=== PATIENT | female | born 1950 | race Caucasian/White ===

== ENCOUNTER → 2016-03-07 | Outpatient (CLI) | payer MEDICARE, OTHER ==
--- NOTE | 2016-03-07 10:19 | RAD ---
EXAM DESCRIPTION: XR KNEE 4 OR MORE VIEWS CLINICAL HISTORY: 66 y/o ,F, PAIN IN LEFT KNEE COMPARISON: October 04, 2015 IMPRESSION: Left knee arthroplasty again noted. No osteolysis seen on today's study. Small joint effusion noted. Dystrophic calcifications seen within the region of the quadriceps tendon. There is irregularity of the distal quadriceps tendon. Injury to this tendon cannot be excluded on today's study. No evidence of fracture noted. Electronically signed by: Jeremiah Palma MD 03/07/2016 10:18
--- NOTE | 2016-03-07 10:21 | RAD ---
EXAM DESCRIPTION: Pelvis series. CLINICAL HISTORY: Pelvic pain. COMPARISON: None. TECHNIQUE: One view was submitted for evaluation. FINDINGS: Symmetrical joint space loss seen within bilateral hips. The pelvic ring is intact. No osseous lesion noted. Mild degenerative change of pubic symphysis. IMPRESSION: Symmetrical joint space loss noted within bilateral hips. Electronically signed by: Jeremiah Palma MD 03/07/2016 10:19
== END ==
LOC: RAD 09:11
PROVIDERS: ATTEND Orthopaedic Surgery
DX: M25.562 Pain in left knee (principal); M25.552 Pain in left hip; M25.462 Effusion, left knee; M25.852 Other specified joint disorders, left hip; M25.851 Other specified joint disorders, right hip; Z96.652 Presence of left artificial knee joint

== ENCOUNTER 2017-03-27 09:45 | Emergency (ER) | payer MEDICARE, OTHER ==
[2017-03-27] MEDS ORDERED: SODIUM CHLORIDE 0.9% 1000ML 1,000 ML IVS ONE (10:15)
--- NOTE | 2017-03-27 10:51 | ED.PDOC ---
History of Present Illness - General Chief Complaint: GI Problem Stated Complaint: Low BP, confusion, dizziness Time Seen by Provider: 03/27/17 10:32 Source: patient, family Exam Limitations: no limitations - History of Present Illness Initial Comments: Olivia Lowery 67 y/o female brought by family to er after she was found to be lethargic,confused ,disoriented and not talking with family member this morning.She was recently discharge 3 days [facility] had scope done no gi pathology noted.On her discharge home was doing fine was on soft diet until this am.Had 2 episodes of hematemesis here in er.Family reported no melena. Timing/Duration: 4-6 hours Severity: moderate Improving Factors: nothing Worsening Factors: nothing Associated Symptoms: other - AMS Allergies/Adverse Reactions: Allergies NO KNOWN ALLERGY Allergy (Unverified 10/24/13 18:51) Home Medications: Ambulatory Orders Adalimumab [Humira] 40 mg SC MONTHLY 02/25/15 Amlodipine Besylate-Benazepril [Lotrel 5-20 mg] 1 cap PO DAILY 10/04/15 Thyroid [[place] Thyroid] 90 mg PO DAILY 03/27/17 Review of Systems - Review of Systems Constitutional: States: no symptoms reported EENTM: States: no symptoms reported Respiratory: States: no symptoms reported Gastrointestinal/Abdominal: States: see HPI Genitourinary: States: no symptoms reported Musculoskeletal: States: no symptoms reported Skin: States: no symptoms reported Neurological: States: see HPI, other - ams All other Systems: Reviewed and Negative, No Change from Baseline Past Medical History (General) - Patient Medical History Hx Stroke: No Hx Cardiac Disorders: No Hx Congestive Heart Failure: No Hx Hypertension: Yes Hx Thyroid Disease: Yes Hx Diabetes: No Hx MRSA: No Hx Other PMH: Yes - Rheumatoid arthritis Surgical History: other - EGD,Hysterectomy,Knee - Vaccination History Hx Tetanus, Diphtheria Vaccination: Yes Hx Influenza Vaccination: Yes Hx Pneumococcal Vaccination: Yes - Social History Hx Tobacco Use: No Hx Alcohol Use: Yes - Female History Patient : No Family Medical History - Family History Mother Family History: No Known Age at (years of age): 92 Hx Family Stroke: Yes Hx Family;Other: Brain aneursyms Physical Exam - Physical Exam General Appearance: Alert, Comfortable, No apparent distress, Other - very pale Eye Exam: bilateral normal Ears, Nose, Throat: hearing grossly normal, normal ENT inspection, normal pharynx Neck: full range of motion, supple Respiratory: lungs clear, normal breath sounds, no respiratory distress Cardiovascular/Chest: regular rate, rhythm, no murmur, tachycardia Peripheral Pulses: radial,right: 2+, radial,left: 2+ Gastrointestinal/Abdominal: normal bowel sounds, non tender, soft, no organomegaly Rectal Exam: normal rectal tone Back Exam: no CVA tenderness, no vertebral tenderness Neurologic: no motor/sensory deficits, alert, disoriented x 3 Skin Exam: warm/dry, pallor Progress - Progress Progress: 03/27/17 10:55 Last Vital Signs Temp 98.0 F 03/27/17 09:46 Pulse 105 H 03/27/17 10:15 Resp 18 03/27/17 10:15 BP 107/41 03/27/17 10:15 Pulse Ox 98 03/27/17 10:15 - Results/Orders Results/Orders: Laboratory Last Values WBC 24.4 K/mm3 (4.8-10.8) H* 03/27/17 10:05 RBC 2.30 M/mm3 (4.20-5.40) L 03/27/17 10:05 Hgb 6.9 gm/dL (12.0-16.0) L* 03/27/17 10:05 Hct 20.4 % (36.0-47.0) L 03/27/17 10:05 MCV 88.5 fl (81.0-99.0) 03/27/17 10:05 MCH 30.0 pg (27.0-31.0) 03/27/17 10:05 MCHC 33.7 g/dL (33.0-37.0) 03/27/17 10:05 RDW 13.8 % (11.5-14.5) 03/27/17 10:05 Plt Count 452 K/mm3 (130-400) H 03/27/17 10:05 MPV 9.0 fl (7.40-10.4) 03/27/17 10:05 Absolute Neuts (auto) 17.10 K/uL (1.8-6.8) H 03/27/17 10:05 Absolute Lymphs (auto) 5.10 K/uL (1.0-3.4) H 03/27/17 10:05 Absolute Monos (auto) 2.00 K/uL (0.2-0.8) H 03/27/17 10:05 Absolute Eos (auto) 0.20 K/uL (0.0-0.4) 03/27/17 10:05 Absolute Basos (auto) 0.10 K/uL (0.0-0.1) 03/27/17 10:05 Neutrophils % 70.2 % (42.0-78.0) 03/27/17 10:05 Neutrophils % (Manual) 53.0 % 03/27/17 10:05 Lymphocytes % 20.9 % (20.0-50.0) 03/27/17 10:05 Lymphocytes % (Manual) 18.0 % 03/27/17 10:05 Monocytes % 8.1 % (2.0-9.0) 03/27/17 10:05 Monocytes % (Manual) 3.0 % 03/27/17 10:05 Eosinophils % 0.6 % (1.0-5.0) L 03/27/17 10:05 Basophils % 0.2 % (0.0-2.0) 03/27/17 10:05 Band Neutrophils 26.0 % 03/27/17 10:05 Eosinophils 1.0 % 03/27/17 10:05 Basophils 0.0 % 03/27/17 10:05 Platelet Estimate Increased (NORMAL) 03/27/17 10:05 PT 13.7 SECONDS (9.4-12.5) H 03/27/17 10:05 INR 1.210 03/27/17 10:05 PTT (SP) 29.7 SECONDS (25.1-36.5) 03/27/17 10:05 Sodium 140 mmol/L (135-145) 03/27/17 10:05 Potassium 3.7 mmol/L (3.6-5.0) 03/27/17 10:05 Chloride 105 mmol/L (101-111) 03/27/17 10:05 Carbon Dioxide 25 mmol/L (21-31) 03/27/17 10:05 Anion Gap 13.7 (12-18) 03/27/17 10:05 BUN 14 mg/dL (7-18) 03/27/17 10:05 Creatinine 1.11 mg/dL (0.6-1.3) 03/27/17 10:05 BUN/Creatinine Ratio 12.6 (10-20) 03/27/17 10:05 Random Glucose 193 mg/dL (70-105) H 03/27/17 10:05 Serum Osmolality 285.1 mOsm/L (275-295) 03/27/17 10:05 Calcium 8.7 mg/dL (8.4-10.2) 03/27/17 10:05 Total Bilirubin 0.6 mg/dL (0.2-1.0) 03/27/17 10:05 AST 16 IU/L (10-42) 03/27/17 10:05 ALT 14 IU/L (10-60) 03/27/17 10:05 Alkaline Phosphatase 57 IU/L (42-121) 03/27/17 10:05 Serum Total Protein 6.1 gm/dL (6.4-8.2) L 03/27/17 10:05 Albumin 2.9 g/dl (3.2-5.5) L 03/27/17 10:05 Globulin 3.2 gm/dL (2.3-3.5) 03/27/17 10:05 Albumin/Globulin Ratio 0.9 (1.1-1.9) L 03/27/17 10:05 Stool Occult Blood Positive 03/27/17 11:16 Patient ABO/Rh A POSITIVE 03/27/17 11:12 Antibody Screen Negative 03/27/17 11:12 Crossmatch See Detail 03/27/17 11:12 - EKG/XRAY/CT CT Ordered: Yes - head-questionable ischemia [employer] distribution Departure - Departure Clinical Impression: Altered mental status, unspecified Qualifiers: Altered mental status type: disorientation Qualified Code(s): R41.0 - Disorientation, unspecified Hematemesis/vomiting blood Qualifiers: Nausea presence: unspecified Qualified Code(s): K92.0 - Hematemesis Leukocytosis, unspecified Qualifiers: Leukocytosis type: bandemia Qualified Code(s): D72.825 - Bandemia Time of Disposition: 13:30 Departure Forms: Patient Portal Self Enrollment Referrals: Amauri Orozco MD [Primary Care Provider] - 1-2 Weeks Home Medications: Ambulatory Orders Adalimumab [Humira] 40 mg SC MONTHLY 02/25/15 Amlodipine Besylate-Benazepril [Lotrel 5-20 mg] 1 cap PO DAILY 10/04/15 Thyroid [[place] Thyroid] 90 mg PO DAILY 03/27/17 Transfer to Outside Facility - Transfer Information Accepting Facility: [facility] - D/W Dr. Clarissa Vidal Md Reason for Transfer: required specialist not available
[2017-03-27] MEDS ORDERED: ONDANSETRON INJ 4 MG/2 ML VIAL IV ONE (11:03)
[2017-03-27] MEDS ORDERED: PANTOPRAZOLE SODIUM IV 40 MG VIAL IV ONE (11:03)
[2017-03-27] MEDS ORDERED: SODIUM CHLORIDE 0.9% 250ML 250 ML ONE ×2 (11:39→13:33)
--- NOTE | 2017-03-27 12:56 | CT ---
EXAM DESCRIPTION: Head CLINICAL HISTORY: ams COMPARISON: None TECHNIQUE: Noncontrast transaxial CT images of the head are obtained from base to vertex. This exam was performed according to our departmental dose-optimization program, which includes automated exposure control, adjustment of the mA and/or kV according to patient size and/or use of iterative reconstruction technique. FINDINGS: The midline structures are not displaced. Sulci are age-appropriate. There are areas of decreased attenuation in the periventricular white matter and the white matter of the centrum semiovale. Subtle asymmetric decreased attenuation from white matter to cortical surface in the left parietal occipital lobe region best seen on images 29 through 40 of series 5 is seen. Question mild effacement of sulci in the medial left occipital region. No abnormal extra axial fluid collection is seen. Moderate calcifications of the intracranial carotid arteries are seen. Bone windows show no evidence of depressed skull fracture. The visualized paranasal sinuses are unremarkable. IMPRESSION: 1. Age-appropriate atrophy with evidence of old small vessel ischemic type changes seen. 2. Questionable area of decreased attenuation in white matter to cortical surface of the left parietal occipital region could represent area of subacute ischemia mainly in the left WIREWORKER distribution. Consider further evaluation with MRI of the brain including diffusion weighted sequences. Electronically signed by: Mariano Spence MD 03/27/2017 12:55 PM GENERAL ASSIGNMENT REPORTER
[2017-03-27] MEDS ORDERED: PIPERACILLIN/TAZOBACTAM 3.375 GM in SODIUM CHLORIDE 0.9% 100ML 100 ML IVPB ONE (13:11)
[2017-03-27] MEDS ORDERED: PIPERACILLIN/TAZOBACTAM 3.375 GM VIAL IVPB ONE (13:14)
[2017-03-27] MEDS ORDERED: SODIUM CHLORIDE 0.9% 100ML 100 ML IVPB ONE (13:14)
[2017-03-27 14:56] VITALS: O2SAT 95
[2017-03-27 14:58] VITALS: BP 145/77; TEMP 99.8
== END 2017-03-27 14:35 | disposition home or self-care (01) ==
LOC: ER 09:45
DX: R41.0 Disorientation, unspecified (principal); K92.0 Hematemesis; D72.825 Bandemia; I10 Essential (primary) hypertension; E07.9 Disorder of thyroid, unspecified
CPT/HCPCS: 36415; 70450; 80053; 82270; 85025; 85610; 85730; 86850; 86900; 86901; 86922; 87040; 93005; J2405; J2543; J7030; J7050; P9016

== ENCOUNTER → 2019-10-14 | Outpatient (CLI) | payer MEDICARE, OTHER | LOC: LAB.O 08:13 | PROVIDERS: ATTEND Internal Medicine Rheumatology | DX: Z11.59 Encounter for screening for other viral diseases (principal); M06.9 Rheumatoid arthritis, unspecified ==

== ENCOUNTER → 2019-11-15 | Outpatient (CLI) | payer MEDICARE, OTHER | LOC: LAB.O 10:43 | PROVIDERS: ATTEND Internal Medicine Rheumatology | DX: M06.9 Rheumatoid arthritis, unspecified (principal); Z11.59 Encounter for screening for other viral diseases ==